=== PATIENT | male | born 1975 | race Caucasian/White ===

== ENCOUNTER 2023-01-05 02:49 | Outpatient (CLI) | payer BC, SELFPAY ==
[2023-01-06 16:48] LABS: Acrosom Defect 15.5 %; Appearance Normal; Container Type 50 mL Conical; Double Forms 0.5 %; Head Shape Abnormal 26.5 %; Motile/Ejaculate 78.7 x10(6) (>=9.0); Motile/mL 78.7 x10(6) (>=6.0); Motility 64 % (>=40); Study Type Semen; Tail Defect 37.5 %
== END 2023-01-05 02:50 | disposition home or self-care (01) ==
PROVIDERS: PCP Nurse Practitioner Family; Visit Provider Obstetrics & Gynecology Gynecology
DX: Z31.89 Encounter for other procreative management; Z31.61 Procreative counseling and advice using natural family planning
CPT/HCPCS: 89240; 89310

== ENCOUNTER 2024-05-19 09:53 | Outpatient (CLI) | payer BC, SELFPAY ==
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
== END 2024-05-19 10:13 ==
LOC: DI 09:53
PROVIDERS: PCP Nurse Practitioner Family; Visit Provider Nurse Practitioner Family
DX: M25.511 Pain in right shoulder (principal)
CPT/HCPCS: 73030

== ENCOUNTER 2024-08-01 00:12 | Outpatient (CLI) | payer BC, SELFPAY ==
--- NOTE | 2024-08-01 07:45 | DI.RAD_ITS ---
Exam(s) XR FOOT LT COMPLETE EXAM: XR FOOT LT COMPLETE CLINICAL HISTORY: foot pain,bilat,[id number]. TECHNIQUE: 2D digital imaging was performed of the left foot. Three images were obtained. AP, obli que and lateral views were obtained. COMPARISON: CR XR FOOT RT COMPLETE from 08/01/2024 FINDINGS: BONES: No acute fracture is present. No bony destructive lesion is seen. There is an enthesophyte at the posterior calcaneus. JOINTS: No dislocation present. SOFT TISSUE: Normal. IMPRESSION: No acute abnormality. DATA REPOSITORY: RADIATION DOSE DELIVERED:
--- NOTE | 2024-08-01 07:45 | DI.RAD_ITS ---
Exam(s) XR FOOT RT COMPLETE EXAM: XR FOOT RT COMPLETE CLINICAL HISTORY: foot pain,bilat M 79.671. TECHNIQUE: 2D digital imaging was performed of the right foot. Three images were obtained. AP, obl ique and lateral views were obtained. COMPARISON: No exams were available for comparison FINDINGS: BONES: No acute fracture is present. No bony destructive lesion is seen. There is an enthesophyte at the posterior calcaneus. JOINTS: No dislocation present. SOFT TISSUE: Normal. IMPRESSION: Enthesophyte at the posterior calcaneus. DATA REPOSITORY: RADIATION DOSE DELIVERED:
== END 2024-08-01 00:32 ==
LOC: DI 00:13
PROVIDERS: PCP Nurse Practitioner Family; Visit Provider Podiatrist
DX: M79.671 Pain in right foot (principal); M79.672 Pain in left foot
CPT/HCPCS: 73630

== ENCOUNTER 2025-04-13 14:17 | Outpatient (CLI) | payer BC, SELFPAY ==
[2025-04-13 16:34] LABS: Calculated LDL 141 mg/dL (<100); Cholesterol 246 mg/dL (<200); HDL Cholesterol 54 mg/dL (>or=40); Triglyceride 258 mg/dL (<150)
[2025-04-13 16:36] LABS: Hemoglobin A1C 5.7 % (<5.7)
== END 2025-04-13 14:18 | disposition home or self-care (01) ==
LOC: LOS 14:17
PROVIDERS: PCP Nurse Practitioner Family; Visit Provider Nurse Practitioner Family
DX: Z13.220 Encounter for screening for lipoid disorders (principal); Z13.1 Encounter for screening for diabetes mellitus
CPT/HCPCS: 36415; 80061; 83036